=== PATIENT | male | born 1970 | race Caucasian/White ===

== ENCOUNTER → 2018-05-31 | Outpatient (CLI) | payer BC ==
--- NOTE | 2018-05-31 09:45 | CARD ---
MR#: [id number] Date of Study: 05/31/2018 Ordering Physician: PAULA MCKEON, Referring Physician: PAULA MCKEON, Tech: Keisha Robertson [facility] APPROVED REPORT EXAM: Two-dimensional and M-mode echocardiogram with Doppler and color Doppler. Other Information Quality : Good Rhythm : NSR INDICATION CAD 2D DIMENSIONS RVDd3.7 (2.9-3.5cm)Left Atrium(2D)3.8 (1.6-4.0cm) IVSd1.4 (0.7-1.1cm)Aortic Root(2D)3.7 (2.0-3.7cm) LVDd4.6 (3.9-5.9cm)LVOT Diameter2.3 (1.8-2.4cm) PWd1.2 (0.7-1.1cm)LVDs3.5 (2.5-4.0cm) FS (%) 23.4 %SV45.4 ml LVEF(%)48.0 (>50%) M-Mode DIMENSIONS Left Atrium(MM)4.67 (2.5-4.0cm)Aortic Root3.94 (2.2-3.7cm) Aortic Valve AoV Peak Zach.124.9cm/sAoV VTI27.5cm AO Peak GR.6.2mmHgLVOT Peak Zach.85.0cm/s AO Mean GR.3mmHgAVA (VMAX)2.85cm2 ZENOBIA (VTI)2.90cm2 Mitral Valve MV E Dmsbzrba01.9cm/sMV DECEL MUBH840vq MV A Zfpsfgru89.5cm/sE/A Ratio1.4 MV A Ckvpjugp477dn Pulmonary Valve PV Peak Lpgwhryi264.1cm/s Tricuspid Valve TR P. Tahtwsbh496se/sRAP MWOFEZEE6mfKe TR Peak Gr.30uuVbOVHP31wgOa Pulmonary Vein S1 Djkoigvc39.8cm/sD2 Ddrbpfum89.6cm/s LEFT VENTRICLE The left ventricle is normal size. There is mild concentric left ventricular hypertrophy. Left ventri sue systolic function is low normal. The Ejection Fraction is 50%. There is normal LV segmental wall motion. The left ventricular diastolic function and filling is normal for age. RIGHT VENTRICLE The right ventricle is mildly dilated. There is normal right ventricular wall thickness. The right ve ntricular systolic function is normal. ATRIA The left atrium size is normal. The right atrium is mildly dilated. The interatrial septum is intact with no evidence for an atrial septal defect or patent foramen ovale as noted on 2-D or Doppler imagi ng. AORTIC VALVE The aortic valve is normal in structure and function. The aortic valve is trileaflet. Doppler and Col or Flow revealed no significant aortic regurgitation. There is no significant aortic valvular stenosi s. MITRAL VALVE The mitral valve is normal in structure and function. There is no evidence of mitral valve prolapse. There is no mitral valve stenosis. Doppler and Color Flow revealed no mitral valve regurgitation note d. TRICUSPID VALVE The tricuspid valve is normal in structure and function. Doppler and Color Flow revealed trace tricus pid regurgitation. The PA pressure was estimated at 26 mmHg. There is no tricuspid valve prolapse or vegetation. PULMONIC VALVE The pulmonic valve is not well visualized. Doppler and Color Flow revealed trace to mild pulmonic leela vular regurgitation. There is no pulmonic valvular stenosis. GREAT VESSELS The aortic root is mildly enlarged at 3.8cm. The ascending aorta is Mildly dilated at 4.0cm. The IVC is normal in size and collapses >50% with inspiration. PERICARDIAL EFFUSION There is no evidence of significant pericardial effusion. Critical Notification Critical Value: No <Conclusion> Left ventricle systolic function is low normal. The Ejection Fraction is 50%. There is normal LV segmental wall motion. The ascending aorta is Mildly dilated at 4.0cm. Signed by : Paula Mckeon, Electronically Approved : 05/31/2018 09:45:03
== END | disposition home or self-care (01) ==
LOC: ECHO 07:47
PROVIDERS: ATTEND Internal Medicine Cardiovascular Disease
DX: I77.819 Aortic ectasia, unspecified site (principal); I51.7 Cardiomegaly; I25.10 Atherosclerotic heart disease of native coronary artery without angina pectoris
CPT/HCPCS: 93306